=== PATIENT | female | born 1995 | race Caucasian/White ===

== ENCOUNTER 2018-03-13 16:27 | Emergency (ER) | payer BC, OTHER ==
[~2018-03-13] VITALS: Ht 152.4 cm; Wt 47.6 kg
[2018-03-13 16:33] VITALS: BP 123/72; Ht 152.4 cm; Wt 47.6 kg
== END 2018-03-13 20:49 | disposition home or self-care (01) ==
LOC: ED 16:27
DX: S16.1XXA Strain of muscle, fascia and tendon at neck level, initial encounter (principal); R51 Headache; V43.52XA Car driver injured in collision with other type car in traffic accident, initial encounter; Y93.I9 Activity, other involving external motion; Y92.89 Other specified places as the place of occurrence of the external cause; Y99.8 Other external cause status

== ENCOUNTER 2020-06-28 20:14 | Emergency (ER) | payer BC, OTHER ==
[~2020-06-28] VITALS: Ht 160 cm; Wt 48.1 kg
[2020-06-28 20:29] VITALS: Ht 160 cm; Wt 48.1 kg
[2020-06-28 21:08] LABS: BASOPHIL % 0.8 % (0-2); PLATELET COUNT 252 x10^3mcL (130-400); RED CELL DISTRIBUTION WIDTH 12.8 % (11.5-14.5)
[2020-06-28 21:15] LABS: CALCIUM 8.4 mg/dL (8.5-10.1); CHLORIDE SERUM 102 mmol/L (98-107); CREATININE SERUM 0.8 mg/dL (0.6-1.0); GFR1 > 60 mL/min; GLUCOSE SERUM 91 mg/dL (74-106); POTASSIUM SERUM 3.7 mmol/L (3.5-5.1); SODIUM SERUM 134 mmol/L (136-145)
[2020-06-28 21:29] LABS: ALBUMIN 4.3 g/dL (3.4-5.0); ALKALINE PHOSPHATASE 65 U/L (46-116); ALT/SGPT 36 U/L (14-59); AST/SGOT 21 U/L (15-37); BILIRUBIN TOTAL 0.4 mg/dL (0.20-1.00); T4(THYROXINE) 9.2 ug/dL (4.7-13.3); TOTAL PROTEIN, SERUM 7.3 g/dL (6.4-8.2)
[2020-06-28 22:56] LABS: AMPHETAMINE QUAL UR NONE DETECTED (See below)
[2020-06-28 23:27] VITALS: BP 114/78
== END 2020-06-28 23:27 | disposition home or self-care (01) ==
LOC: ED 20:14
PROVIDERS: Emergency Medicine
DX: R51.9 Headache, unspecified (principal); R00.2 Palpitations; H53.8 Other visual disturbances; R11.0 Nausea
CPT/HCPCS: J2765

== ENCOUNTER 2020-07-05 17:38 | Emergency (ER) | payer BC, OTHER ==
[~2020-07-05] VITALS: Ht 160 cm; Wt 47.6 kg
[2020-07-05 18:06] VITALS: Ht 160 cm; Wt 47.6 kg
[2020-07-05 19:47] VITALS: BP 120/80
== END 2020-07-05 19:47 | disposition home or self-care (01) ==
LOC: ED 17:38
DX: R00.2 Palpitations (principal); F41.9 Anxiety disorder, unspecified